=== PATIENT | female | born 1985 | race Caucasian/White ===

== ENCOUNTER 2017-05-18 15:05 | Emergency (ER) | payer OTHER ==
[~2017-05-18] VITALS: Ht 160 cm; Wt 104.3 kg
[2017-05-18 15:10] VITALS: BP 132/87
== END 2017-05-18 16:10 | disposition home or self-care (01) ==
LOC: ER 15:05
DX: S61.210A Laceration without foreign body of right index finger without damage to nail, initial encounter (principal); J45.909 Unspecified asthma, uncomplicated; F17.210 Nicotine dependence, cigarettes, uncomplicated; Z88.8 Allergy status to other drugs, medicaments and biological substances; Z88.1 Allergy status to other antibiotic agents; Z91.041 Radiographic dye allergy status; W45.8XXA Other foreign body or object entering through skin, initial encounter; Y93.89 Activity, other specified; Y92.89 Other specified places as the place of occurrence of the external cause; Y99.8 Other external cause status

== ENCOUNTER 2017-11-30 17:49 | Emergency (ER) | payer OTHER ==
[~2017-11-30] VITALS: Ht 160 cm; Wt 122.9 kg
[2017-11-30 17:49] VITALS: BP 136/94
[2017-11-30] MEDS ORDERED: CLEOCIN HCL150 MG PO (18:08)
[2017-11-30] MEDS ORDERED: NORCO 5-325 TA1 EACH PO (18:08)
== END 2017-11-30 18:24 | disposition home or self-care (01) ==
LOC: ER 17:49
DX: K02.9 Dental caries, unspecified (principal); J45.909 Unspecified asthma, uncomplicated; F31.9 Bipolar disorder, unspecified; F41.9 Anxiety disorder, unspecified; Z88.1 Allergy status to other antibiotic agents; Z91.040 Latex allergy status

== ENCOUNTER 2018-11-08 19:20 | Emergency (ER) | payer OTHER ==
[~2018-11-08] VITALS: Ht 160 cm; Wt 119.3 kg
[~2018-11-08 19:20] MED LIST: CLEOCIN HCL150 MG PO; NORCO 5-325 TA1 EACH PO
[2018-11-08] MEDS ORDERED: ULTRAM 50MG TAB50 MG PO (20:21)
[2018-11-08] MEDS ORDERED: DOXYCYCLINE 10100 M1 PO (20:21)
[2018-11-08 20:29] VITALS: BP 142/86
== END 2018-11-08 20:30 | disposition home or self-care (01) ==
LOC: ER 19:20
DX: L02.411 Cutaneous abscess of right axilla (principal); F17.210 Nicotine dependence, cigarettes, uncomplicated; J45.909 Unspecified asthma, uncomplicated; E28.2 Polycystic ovarian syndrome; F31.9 Bipolar disorder, unspecified; F41.9 Anxiety disorder, unspecified; Z88.1 Allergy status to other antibiotic agents; Z88.8 Allergy status to other drugs, medicaments and biological substances; Z91.040 Latex allergy status; Z91.041 Radiographic dye allergy status

== ENCOUNTER 2018-11-11 20:38 | Emergency (ER) | payer OTHER ==
[~2018-11-11] VITALS: Ht 160 cm; Wt 118.8 kg
[~2018-11-11 20:38] MED LIST changes: +DOXYCYCLINE 10100 M1 PO; +ULTRAM 50MG TAB50 MG PO
[2018-11-11] MEDS ORDERED: METFORMIN HCL500 MG PO (21:09)
[2018-11-11] MEDS ORDERED: BCP PO (21:09)
[2018-11-11] MEDS ORDERED: CELEXA40 MG PO (21:10)
[2018-11-11] MEDS ORDERED: BUSPIRONE HCL10 MG PO (21:10)
[2018-11-11] MEDS ORDERED: SLEEPING PILL PO (21:12)
[2018-11-11] MEDS ORDERED: VENTOLIN HFA 1818 GM INH (21:13)
[2018-11-11] MEDS ORDERED: HIBICLENS118 ML TOP (22:15)
[2018-11-11] MEDS ORDERED: HYDROCODONE-AP1 EAC6 PO (22:15)
[2018-11-11] MEDS ORDERED: CLEOCIN HCL150 MG PO (22:15)
[2018-11-11 22:56] VITALS: BP 140/93
== END 2018-11-11 22:57 | disposition home or self-care (01) ==
LOC: ER 20:38
DX: L02.411 Cutaneous abscess of right axilla (principal); L73.2 Hidradenitis suppurativa; F17.210 Nicotine dependence, cigarettes, uncomplicated; J45.909 Unspecified asthma, uncomplicated; E28.2 Polycystic ovarian syndrome; F31.9 Bipolar disorder, unspecified; F41.9 Anxiety disorder, unspecified; Z88.1 Allergy status to other antibiotic agents; Z88.8 Allergy status to other drugs, medicaments and biological substances; Z91.041 Radiographic dye allergy status; Z91.040 Latex allergy status

== ENCOUNTER 2018-11-14 16:51 | Emergency (ER) | payer OTHER ==
[~2018-11-14] VITALS: Ht 160 cm; Wt 118.8 kg
[~2018-11-14 16:51] MED LIST changes: +BCP PO; +BUSPIRONE HCL10 MG PO; +CELEXA40 MG PO; +HIBICLENS118 ML TOP; +HYDROCODONE-AP1 EAC6 PO; +METFORMIN HCL500 MG PO; +SLEEPING PILL PO; +VENTOLIN HFA 1818 GM INH
[2018-11-14 20:36] VITALS: BP 132/72
== END 2018-11-14 20:37 | disposition home or self-care (01) ==
LOC: ER 16:51
DX: L02.411 Cutaneous abscess of right axilla (principal); J45.909 Unspecified asthma, uncomplicated; F17.210 Nicotine dependence, cigarettes, uncomplicated; Z88.1 Allergy status to other antibiotic agents; Z91.040 Latex allergy status; Z91.041 Radiographic dye allergy status

== ENCOUNTER 2019-03-28 23:22 | Emergency (ER) | payer OTHER ==
[~2019-03-28] VITALS: Ht 160 cm; Wt 115.2 kg
[~2019-03-28 23:22] MED LIST changes: +CEPACOL SORE T1 EAC7 PO; +FLONASE 0.05%50 MCG NASAL; +METFORMIN; +METFORMIN HCL500 M3; +SPIRONOLACTONE25 MG PO; +ZYRTEC10 M5 PO
[2019-03-29 00:21] LABS: ABSOLUTE NEUTROPHILS 10.7 thou/uL (1.4-8.2); BASOPHILS 0.4 % (0.0-2.0); EOSINOPHILS 2.7 % (0.0-3.0); HEMATOCRIT 41.5 % (37.0-47.0); HEMOGLOBIN 13.2 gm/dL (12.0-15.0); MCH 24.7 pg (26.0-34.0); MCHC 31.9 g/dL (28.0-37.0); MCV 77.4 fL (80.0-100.0); MONOCYTES 4.9 % (1.0-8.0); PLATELET COUNT 423 thou/uL (150-400); RBC 5.36 mil/uL (4.20-5.00); RDW 15.4 % (10.5-14.5); WBC 16.4 thou/uL (4.0-11.0)
[2019-03-29 00:23] LABS: CREATININE 0.9 mg/dL (0.6-1.0)
[2019-03-29 00:28] LABS: ALBUMIN 3.8 g/dL (3.4-5.0); TOTAL BILIRUBIN 0.3 mg/dL (<0.1-1.0); TOTAL PROTEIN 8.4 g/dL (6.4-8.2)
[2019-03-29 01:36] LABS: URINE BILIRUBIN NEGATIVE (Negative); URINE BLOOD NEGATIVE (Negative); URINE CLARITY CLEAR; URINE COLOR YELLOW; URINE GLUCOSE-RANDOM* NEGATIVE (Negative); URINE KETONES NEGATIVE (Negative); URINE LEUKOCYTES NEGATIVE (Negative); URINE NITRITE NEGATIVE (Negative); URINE PROTEIN (DIPSTICK) NEGATIVE (Negative); URINE SPECIFIC GRAVITY <= 1.005 (1.005-1.035); URINE UROBILINOGEN 0.2 E.U./dl (0.2-1.0)
[2019-03-29 03:30] VITALS: BP 105/60
== END 2019-03-29 04:23 | disposition home or self-care (01) ==
LOC: ER 23:22
PROVIDERS: Emergency Medicine
DX: N83.202 Unspecified ovarian cyst, left side (principal); R19.7 Diarrhea, unspecified; E11.9 Type 2 diabetes mellitus without complications; E78.5 Hyperlipidemia, unspecified; J45.909 Unspecified asthma, uncomplicated; F41.9 Anxiety disorder, unspecified; F17.210 Nicotine dependence, cigarettes, uncomplicated; Z90.721 Acquired absence of ovaries, unilateral; Z88.1 Allergy status to other antibiotic agents; Z91.041 Radiographic dye allergy status

== ENCOUNTER 2019-08-18 12:23 | Emergency (ER) | payer OTHER ==
[~2019-08-18] VITALS: Ht 160 cm; Wt 121.1 kg
[2019-08-18] MEDS ORDERED: ALBUTEROL2.5 MG/31 INH (13:29)
[2019-08-18] MEDS ORDERED: TESSALON PERLE100 MG PO (13:29)
[2019-08-18] MEDS ORDERED: IBUPROFEN 600600 M1 PO (13:29)
[2019-08-18] MEDS ORDERED: PREDNISONE 20 M20 MG PO (13:29)
[2019-08-18 14:15] VITALS: BP 130/82
== END 2019-08-18 14:29 | disposition home or self-care (01) ==
LOC: ER 12:23
DX: J11.1 Influenza due to unidentified influenza virus with other respiratory manifestations (principal); J45.909 Unspecified asthma, uncomplicated; F17.210 Nicotine dependence, cigarettes, uncomplicated; F31.9 Bipolar disorder, unspecified; F41.9 Anxiety disorder, unspecified; Z88.8 Allergy status to other drugs, medicaments and biological substances; Z88.1 Allergy status to other antibiotic agents; Z91.040 Latex allergy status

== ENCOUNTER 2019-09-10 22:20 | Inpatient (IN) | payer OTHER ==
[~2019-09-10] VITALS: Ht 160 cm; Wt 122.0 kg
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
[2019-09-10 22:20] VITALS: BP 121/71
[~2019-09-10 22:20] MED LIST changes: +ALBUTEROL2.5 MG/31 INH; +IBUPROFEN 600600 M1 PO; +PREDNISONE 20 M20 MG PO; +TESSALON PERLE100 MG PO
[2019-09-10 22:46] LABS: BE(vivo) -2.8 mmol/L (-2 to +3); HCO3 20.4 mmol/L (22.0-26.0); PCO2 30.6 mmHg (35.0-45.0); PO2 102.1 mmHg (80.0-100.0); pH 7.442 (7.360-7.450); sO2 97.9 % (92.0-98.0)
--- NOTE | 2019-09-10 22:54 | NUR ---
POISON CONTROL CONTACTED: NURSE (JASON) INGESTION AROUND 2100: TRAZADONE (150MG) X 15 TABS : TOTAL INGESTION (2250MG) ABOVE MAXIMUM INGESTION FOR TOXICITY. PEAK 1-2 HOURS POST INGESTION. SIGNIFICANT SEDATION, NAUSEA/VOMITING, EKG PROLONGED QT, RISK FOR SEROTONIN TOXICITY DIAZEPAM (5MG) X 6-7 TABS : TOTAL INGESTION (35MG) : HYPOTENSION, CASH APPLICATIONS SPECIALIST DEPRESSION, RESPIRATORY INSUFFICIENCY, PARYDOXICAL AGITATION RISK BUPROPRION XL (150MG) X 6-7 TABS : (1050MG) - UNDER THE MAX TOXICITY (WILL REMAIN IN SYSTEM FOR UP TO 37 HOURS. IRRITABILITY, AGITATION, TACHYCARDIA, PSYCHOSIS, SEIZURES MOST COMMON WITHIN FIRST 8 HOURS OF INGESTION UP TO 24 HOURS (LOWER RISK FOR SEIZURES BECAUSE OF DOSE). EKG: WIDE QRS - RECOMMEND SEIZURE PRECAUTIONS (IF SEIZURE OCCURS USE KEPPRA OR ANOTHER DOSE OF BENZO) OTHERWISE, PROVIDE SUPPORTIVE CARE AND AIRWAY MANAGEMENT
[2019-09-10 23:08] LABS: ABSOLUTE NEUTROPHILS 7.9 thou/uL (1.4-8.2); BASOPHILS 0.9 % (0.0-2.0); EOSINOPHILS 0.9 % (0.0-3.0); HEMATOCRIT 35.9 % (37.0-47.0); HEMOGLOBIN 11.5 gm/dL (12.0-15.0); LYMPHOCYTES 22.9 % (24.0-44.0); MCH 24.7 pg (26.0-34.0); MCHC 31.9 g/dL (28.0-37.0); MCV 77.5 fL (80.0-100.0); MONOCYTES 4.7 % (1.0-8.0); PLATELET COUNT 465 thou/uL (150-400); POLYS 70.6 % (36.0-66.0); RBC 4.64 mil/uL (4.20-5.00); RDW 15.5 % (10.5-14.5); WBC 11.2 thou/uL (4.0-11.0)
[2019-09-10 23:09] LABS: URINE BILIRUBIN 1+ (Negative); URINE BLOOD NEGATIVE (Negative); URINE CLARITY CLEAR; URINE COLOR YELLOW; URINE GLUCOSE-RANDOM* NEGATIVE (Negative); URINE KETONES TRACE (Negative); URINE LEUKOCYTES-REFLEX NEGATIVE (Negative); URINE NITRITE-REFLEX NEGATIVE (Negative); URINE PROTEIN (DIPSTICK) 1+ (Negative); URINE SPECIFIC GRAVITY >= 1.030 (1.005-1.035); URINE UROBILINOGEN 0.2 E.U./dl (0.2-1.0)
[2019-09-10] MEDS ORDERED: BUPROPION XL300 MG PO (23:11)
[2019-09-10 23:12] LABS: ANION GAP 11 mmol/L (7-16); BUN 14 mg/dL (7-18); CALCIUM 9.2 mg/dL (8.5-10.1); CHLORIDE 103 mmol/L (98-107); CO2 24 mmol/L (21-32); GLUCOSE 120 mg/dL (74-106); SODIUM 138 mmol/L (136-145)
[2019-09-10] MEDS ORDERED: DULOXETINE HCL60 MG PO (23:13)
[2019-09-10] MEDS ORDERED: METFORMIN HCL500 M3 PO (23:14)
[2019-09-10] MEDS ORDERED: DIAZEPAM 5 MG5 M1 PO (23:15)
[2019-09-10] MEDS ORDERED: OMEPRAZOLE40 MG PO (23:15)
[2019-09-10] MEDS ORDERED: BENZONATATE200 MG PO (23:16)
[2019-09-10] MEDS ORDERED: SUPER THERAVIT1 EACH PO (23:16)
[2019-09-10] MEDS ORDERED: NAC500 MG PO (23:17)
[2019-09-10 23:18] LABS: ALBUMIN 3.7 g/dL (3.4-5.0); SALICYLATE 2.8 mg/dL (2.8-20.0); SGOT 29 U/L (15-37); SGPT 38 U/L (30-65); TOTAL BILIRUBIN 0.2 mg/dL (<0.1-1.0); TOTAL PROTEIN 7.9 g/dL (6.4-8.2)
[2019-09-10] MEDS ORDERED: TYLENOL EXTRA500 MG (23:18)
[2019-09-10 23:19] LABS: AMP/METHAMP Negative (Negative); BARBITURATES Negative (Negative); BENZODIAZEPINES POSITIVE (Negative); COCAINE Negative (Negative); METHADONE Negative (Negative); OPIATES Negative (Negative); PCP Negative (Negative)
[2019-09-10] MEDS ORDERED: ADVIL200 M1 (23:19)
[2019-09-10] MEDS ORDERED: SPIRONOLACTONE25 MG PO (23:19)
[2019-09-10] MEDS ORDERED: PROBIOTIC1 EAC7 (23:20)
[2019-09-10] MEDS ORDERED: TURMERIC500 M2 PO (23:21)
[2019-09-10] MEDS ORDERED: NORLYDA0.35 MG (23:22)
[2019-09-10] MEDS ORDERED: IBU600 MG PO (23:22)
[2019-09-10] MEDS ORDERED: VISINE ADVANCED15 ML (23:23)
[2019-09-10] MEDS ORDERED: PAMPRIN (23:24)
[2019-09-10 23:25] LABS: BACTERIA-REFLEX 1-9 Few /HPF (None Seen); CRYSTALS None Seen /LPF (None Seen); HYALINE CASTS 4-10 Moderate /LPF (None Seen); MUCUS 4-6 Moderate strn/LPF (None Seen); SQUAMOUS 4-10 Moderate /LPF (0-3); URINE RBC 0-2 Rare /HPF (0-2); URINE WBC-REFLEX 0-5 Rare /HPF (0-5)
[2019-09-11] VITALS (14 sets, daily range): BP systolic 92–134; BP diastolic 48–72
--- NOTE | 2019-09-11 03:27 | NUR ---
PT ARRIVED IN ICU FROM ER SHORTLY AFTER MN. PT EXTREMELY DROWSY AND LETHARGIC. MORE AWAKE UPON ARRIVAL, ABLE TO ANSWER SOME QUESTIONS AND FOLLOW SOME COMMANDS. SLEEPING NOW. ABLE TO AROUSE PT, BUT VERY LETHARGIC. SEIZURE PRECAUTIONS IN PLACE. SITTER AT BEDSIDE. WILL CONTINUE TO MONITOR.
[2019-09-11 05:30] LABS: HEMATOCRIT 32.3 % (37.0-47.0); HEMOGLOBIN 10.3 gm/dL (12.0-15.0); MCH 24.8 pg (26.0-34.0); MCV 77.6 fL (80.0-100.0); RBC 4.16 mil/uL (4.20-5.00); RDW 15.2 % (10.5-14.5); WBC 11.5 thou/uL (4.0-11.0)
[2019-09-11 05:36] LABS: CALCIUM 8.3 mg/dL (8.5-10.1); CREATININE 0.9 mg/dL (0.6-1.0); POTASSIUM 3.7 mmol/L (3.5-5.1)
--- NOTE | 2019-09-11 08:20 | NUR ---
Pt alert and oriented x4, no complaints of pain. VSS. States she feels "sleepy". Security called to obtain wallet, sent with security at 1240. Report called to ZULMA Sanchez, pt transferred to 443 via with BALDEMAR Cheek. All belongings sent with Adia.
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
--- NOTE | 2019-09-11 09:43 | EKG ---
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
[2019-09-11] MEDS ORDERED: BUPROPION XL300 MG PO (12:34)
[2019-09-11] MEDS ORDERED: FLONASE 0.05%50 MCG NASAL (12:35)
[2019-09-11] MEDS ORDERED: FLOVENT DISKU100 MCG (12:46)
[2019-09-11] MEDS ORDERED: MIRALAX119 GM PO (12:49)
[2019-09-11] MEDS ORDERED: ALBUTEROL2.5 MG/0.1 INH (12:49)
[2019-09-11] MEDS ORDERED: BLISOVI 24 FE1 EACH PO (12:51)
[2019-09-11] MEDS ORDERED: DULOXETINE HCL20 MG PO (12:51)
[2019-09-11] MEDS ORDERED: BUSPIRONE HCL10 MG PO (12:52)
[2019-09-11] MEDS ORDERED: DESYREL150 MG PO (12:53)
[2019-09-11] MEDS ORDERED: OMEPRAZOLE40 MG PO (12:54)
[2019-09-11] MEDS ORDERED: METFORMIN HCL500 M3 PO (12:54)
[2019-09-11] MEDS ORDERED: ATORVASTATIN CA20 MG PO (12:56)
--- NOTE | 2019-09-11 17:51 | NUR ---
PT A&OX4, VSS, DENIES PAIN. PATIENT COOPERATIVE, IV IN RIGHT WRIST PATENT WITH FLUIDS RUNNING. PATIENT HAS 1:1 SITTER, NO SIGNS OF DISTRESS. WILL CONTINUE TO MONITOR.
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
[2019-09-12 05:50] VITALS: BP 102/65
[2019-09-12 07:00] VITALS: BP 102/65
--- NOTE | 2019-09-12 14:24 | NUR ---
PSYCH IS RECOMMENDING PT GO FOR INPATIENT PSYC STAY AND CARE TEAM INDICATED THAT PT IS MEDICALLY STABLE TO TRANSFER. CM CALLED AND SENT REFERRALS TO [facility]: REFERRAL FAXED AT 1:02 SIGNITURE: FAXED AT 1:31 C: CALLED BED PAGER NUMBER NO RESPONSE OF THIS NOTE. [facility]: FAXED REFERRAL 2:25 CM TO FOLLOW INIDCATED IN FINDING PLACEMENT. CHART COPY ORDERED. CM TO COMPLETE [facility] FORM AND TRANSFER FROM AND FAX TO UNIT.
[2019-09-12 15:00] VITALS: BP 108/62
--- NOTE | 2019-09-12 17:00 | NUR ---
PT ASSESSED AT START OF SHIFT. STATES FEELING SOME BETTER BUT KNOWS SHE'S NOT BACK TO HER NORMAL SELF. STILL NOT WANTING TO LIVE BUT WANTING HELP TO NOT FEEL THAT WAY. HAS BEEN CALM AND COOPERATIVE W/ CARES. READILY TALKING W/ CAREGIVERS. EATING AND DRINKING. SM BM AND FEELS CONSTIPATED.
[2019-09-12] MEDS ORDERED: CYMBALTA20 MG PO (18:53)
[2019-09-12 19:50] VITALS: BP 115/60
== END 2019-09-12 20:49 | DRG 918 ==
LOC: ER 22:20 → ICU 23:39 → EROBS 23:39 → ICU 09-11 00:24 → 4S 09-11 13:53
PROVIDERS: Emergency Medicine; Nurse Practitioner Family; Physician Assistant; ADMIT Hospitalist
DX: T42.4X1A Poisoning by benzodiazepines, accidental (unintentional), initial encounter (principal); R45.851 Suicidal ideations; Z68.42 Body mass index [BMI] 45.0-49.9, adult; J45.909 Unspecified asthma, uncomplicated; F31.9 Bipolar disorder, unspecified; F41.9 Anxiety disorder, unspecified; E78.5 Hyperlipidemia, unspecified; G43.909 Migraine, unspecified, not intractable, without status migrainosus; F17.210 Nicotine dependence, cigarettes, uncomplicated; E66.01 Morbid (severe) obesity due to excess calories; E28.2 Polycystic ovarian syndrome; F39 Unspecified mood [affective] disorder; Z88.1 Allergy status to other antibiotic agents; Z88.8 Allergy status to other drugs, medicaments and biological substances; Y92.89 Other specified places as the place of occurrence of the external cause; Z91.041 Radiographic dye allergy status; Z91.040 Latex allergy status
CPT/HCPCS: 10102; 10195

== ENCOUNTER 2019-10-04 10:30 | Emergency (ER) | payer OTHER ==
[~2019-10-04] VITALS: Ht 160 cm; Wt 120.2 kg
[~2019-10-04 10:30] MED LIST changes: +ADVIL200 M1; +ALBUTEROL2.5 MG/0.1 INH; +ATORVASTATIN CA20 MG PO; +BENZONATATE200 MG PO; +BLISOVI 24 FE1 EACH PO; +BUPROPION XL300 MG PO; +CYMBALTA20 MG PO; +DESYREL150 MG PO; +DIAZEPAM 5 MG5 M1 PO; +DULOXETINE HCL20 MG PO; +DULOXETINE HCL60 MG PO; +FLOVENT DISKU100 MCG; +IBU600 MG PO; +METFORMIN HCL500 M3 PO; +MIRALAX119 GM PO; +NAC500 MG PO; +NORLYDA0.35 MG; +OMEPRAZOLE40 MG PO; +PAMPRIN; +PROBIOTIC1 EAC7; +SUPER THERAVIT1 EACH PO; +TURMERIC500 M2 PO; +TYLENOL EXTRA500 MG; +VISINE ADVANCED15 ML
[2019-10-04] MEDS ORDERED: GABAPENTIN100 MG PO (10:48)
[2019-10-04 10:59] LABS: HEMATOCRIT 36.5 % (37.0-47.0); HEMOGLOBIN 11.2 gm/dL (12.0-15.0); MCH 23.9 pg (26.0-34.0); MCHC 30.7 g/dL (28.0-37.0); MCV 77.7 fL (80.0-100.0); RBC 4.69 mil/uL (4.20-5.00); RDW 15.8 % (10.5-14.5); WBC 13.1 thou/uL (4.0-11.0)
[2019-10-04 11:04] LABS: ANION GAP 10 mmol/L (7-16); BUN 9 mg/dL (7-18); CALCIUM 8.8 mg/dL (8.5-10.1); CHLORIDE 106 mmol/L (98-107); CO2 26 mmol/L (21-32); CREATININE 0.9 mg/dL (0.6-1.0); GLUCOSE 124 mg/dL (74-106); POTASSIUM 4.1 mmol/L (3.5-5.1); SALICYLATE < 2.8 mg/dL (2.8-20.0); SODIUM 142 mmol/L (136-145)
[2019-10-04 11:11] LABS: URINE BILIRUBIN NEGATIVE (Negative); URINE BLOOD NEGATIVE (Negative); URINE CLARITY CLOUDY; URINE COLOR YELLOW; URINE GLUCOSE-RANDOM* NEGATIVE (Negative); URINE KETONES NEGATIVE (Negative); URINE LEUKOCYTES-REFLEX 1+ (Negative); URINE NITRITE-REFLEX NEGATIVE (Negative); URINE PROTEIN (DIPSTICK) NEGATIVE (Negative); URINE SPECIFIC GRAVITY >= 1.030 (1.005-1.035); URINE UROBILINOGEN 0.2 E.U./dl (0.2-1.0)
[2019-10-04 11:17] LABS: SQUAMOUS >10 Many /LPF (0-3)
[2019-10-04 11:18] LABS: CASTS None Seen /LPF (None Seen); CRYSTALS None Seen /LPF (None Seen)
[2019-10-04 11:20] LABS: MUCUS 4-6 Moderate strn/LPF (None Seen); URINE RBC 0-2 Rare /HPF (0-2); URINE WBC-REFLEX 6-15 Few /HPF (0-5)
[2019-10-04 11:24] LABS: AMP/METHAMP Negative (Negative); BARBITURATES Negative (Negative); BENZODIAZEPINES POSITIVE (Negative); COCAINE Negative (Negative); METHADONE Negative (Negative); OPIATES Negative (Negative); PCP Negative (Negative)
[2019-10-04 17:34] VITALS: BP 132/64
== END 2019-10-04 17:40 ==
LOC: ER 10:30
PROVIDERS: Emergency Medicine
DX: R45.851 Suicidal ideations (principal); F31.9 Bipolar disorder, unspecified; F41.0 Panic disorder [episodic paroxysmal anxiety]; E78.5 Hyperlipidemia, unspecified; J45.909 Unspecified asthma, uncomplicated; E11.9 Type 2 diabetes mellitus without complications; E66.01 Morbid (severe) obesity due to excess calories; G43.909 Migraine, unspecified, not intractable, without status migrainosus; F17.210 Nicotine dependence, cigarettes, uncomplicated; Z79.899 Other long term (current) drug therapy; Z88.1 Allergy status to other antibiotic agents; Z91.040 Latex allergy status; Z91.041 Radiographic dye allergy status